=== PATIENT | male | born 1960 | race Caucasian/White ===

== ENCOUNTER 2019-08-15 00:58 | Observation (INO) | payer MEDICARE, OTHER ==
[2019-08-15 01:07] VITALS: RESP 18
--- NOTE | 2019-08-15 01:49 | ED ---
Chest Pain [facility] - General Chief Complaint: Chest Pain Stated Complaint: Chest Pain Time Seen by Provider: 08/15/19 01:09 Source: EMS Mode of arrival: EMS Limitations: no limitations - History of Present Illness MD Complaint: chest pain -: hour(s) Onset: during rest Pain Location: substernal Pain Radiation: jaw/teeth Severity: moderate Quality: aching Consistency: now resolved Improves With: nitroglycerin Worsens With: nothing Treatments Prior to Arrival: aspirin, nitroglycerin - Related Data Home Medications Medication Instructions Recorded Confirmed Clopidogrel [Plavix] 75 mg PO DAILY 02/14/15 08/15/19 Aspirin EC [Ecotrin Low Dose] 81 mg PO DAILY 07/25/16 08/15/19 Nitroglycerin Sl Tabs [Nitrostat] 0.4 mg SUBLINGUAL Q5M PRN 07/25/16 08/15/19 Omeprazole 20 mg PO HS 07/25/16 08/15/19 clonazePAM [KlonoPIN] 1 mg PO BID 07/25/16 08/15/19 Atorvastatin [Lipitor] 80 mg PO HS 08/15/19 08/15/19 Diazepam [Valium] 1 mg PO BID 08/15/19 08/15/19 Famotidine 40 mg PO DAILY 08/15/19 08/15/19 Gabapentin [Neurontin] 300 mg PO BID 08/15/19 08/15/19 Isosorbide Mononitrate ER [Imdur] 30 mg PO DAILY 08/15/19 08/15/19 Loratadine 10 mg PO DAILY 08/15/19 08/15/19 Metoprolol Tartrate [Lopressor] 25 mg PO HS 08/15/19 08/15/19 Metoprolol Tartrate [Lopressor] 50 mg PO DAILY 08/15/19 08/15/19 Ranolazine [Ranolazine ER] 500 mg PO BID 08/15/19 08/15/19 Tamsulosin HCl [Flomax] 0.4 mg PO HS 08/15/19 08/15/19 clonazePAM [KlonoPIN] 2 mg PO HS 08/15/19 08/15/19 Previous Rx's Medication Instructions Recorded Isosorbide Mononitrate ER [Imdur] 60 mg PO DAILY #30 tab.er.24h 07/26/16 Lisinopril [Zestril] 10 mg PO HS #30 tab 07/26/16 Allergies Allergy/AdvReac Type Severity Reaction Status Date / Time No Known Allergies Allergy Verified 08/15/19 08:36 Review of Systems ROS Statement: Those systems with pertinent positive or pertinent negative responses have been documented in the HPI. ROS Other: All systems not noted in ROS Statement are negative. Constitutional: Denies: fever, chills Respiratory: Denies: cough, dyspnea Cardiovascular: Reports: chest pain. Denies: palpitations, orthopnea, edema, syncope Gastrointestinal: Denies: abdominal pain, nausea, vomiting, melena, hematochezia Musculoskeletal: Denies: back pain Skin: Denies: rash Neurological: Denies: headache, weakness EKG Findings - EKG Results: EKG: interpreted by [facility], sinus rhythm (Rate 81 bpm) - Blocks, [place], Hypertrophy, ST Abn: AV and intraventricular conduction: right bundle branch block (fixed/intermittent, complete/incomplete) QRS axis and voltage: left axis deviation (-30 to -90) - [place], Pacemaker, Normal: Myocardial infarction: inferior [place] (old age indeterminate) Past Medical History Past Medical History: Coronary Artery Disease (CAD), GERD/Reflux, Hyperlipidemia, Hypertension, Myocardial Infarction ([place]), Osteoarthritis (OA) Additional Past Medical History / Comment(s): Pt states he has had "6" heart attacks including today's. He states, "the doctors are saying I didn't have one today but I know I did." Last documented [place] was an inferior [place] in 2000. Other HX: anal fistula, bilateral tinnitis, generalized OA, sleep disorder, "frightmares", dry skin bilateral ears. Last Myocardial Infarction Date:: 2000 per past record History of Any Multi-Drug Resistant Organisms: None Reported Past Surgical History: Back Surgery, Heart Catheterization, Heart Catheterization With Stent Additional Past Surgical History / Comment(s): Recent low back surgery, angioplasties, 9 stents total per pt. Past Anesthesia/Blood Transfusion Reactions: No Reported Reaction Date of Last Stent Placement:: 2008 Smoking Status: Former smoker - Past Family History Father Family Medical History: Cancer Additional Family Medical History / Comment(s): Father of prostate cancer at the age of 75yrs. Mother Family Medical History: Cancer Additional Family Medical History / Comment(s): Mothr of leukemia at the age of 86yrs. General Exam Limitations: no limitations General appearance: alert, in no apparent distress Head exam: Present: atraumatic, normocephalic Eye exam: Present: normal appearance. Absent: scleral icterus, conjunctival injection Neck exam: Present: normal inspection Respiratory exam: Present: normal lung sounds bilaterally. Absent: respiratory distress, wheezes, rales, rhonchi, stridor Cardiovascular Exam: Present: regular rate, normal rhythm, normal heart sounds. Absent: systolic murmur, diastolic murmur, rubs, gallop GI/Abdominal exam: Present: soft. Absent: distended, tenderness, guarding, rebound, rigid Extremities exam: Present: normal inspection, normal capillary refill. Absent: pedal edema, calf tenderness Back exam: Present: normal inspection. Absent: CVA tenderness (R), CVA tenderness (L) Neurological exam: Present: alert Skin exam: Present: warm, dry, intact, normal color. Absent: rash Course Vital Signs 08/15/19 08/15/19 08/15/19 01:01 01:17 01:50 Temperature 97.4 F L Pulse Rate 86 82 Pulse Rate [ Pulse Oximetery ] Respiratory 18 18 18 Rate Blood Pressure 148/91 129/81 Blood Pressure [Right Arm] O2 Sat by Pulse 98 Oximetry 08/15/19 08/15/19 08/15/19 02:00 02:10 02:20 Temperature Pulse Rate 78 77 68 Pulse Rate [ Pulse Oximetery ] Respiratory 18 18 18 Rate Blood Pressure 129/81 128/87 135/84 Blood Pressure [Right Arm] O2 Sat by Pulse Oximetry 08/15/19 08/15/19 08/15/19 02:30 02:40 02:50 Temperature Pulse Rate 73 73 71 Pulse Rate [ Pulse Oximetery ] Respiratory 13 13 17 Rate Blood Pressure 135/84 130/86 130/86 Blood Pressure [Right Arm] O2 Sat by Pulse Oximetry 08/15/19 08/15/19 08/15/19 03:00 03:10 03:20 Temperature Pulse Rate 72 72 70 Pulse Rate [ Pulse Oximetery ] Respiratory 16 0 L 17 Rate Blood Pressure 130/86 138/90 138/90 Blood Pressure [Right Arm] O2 Sat by Pulse Oximetry 08/15/19 08/15/19 08/15/19 03:30 03:40 03:50 Temperature Pulse Rate 70 62 68 Pulse Rate [ Pulse Oximetery ] Respiratory 19 17 18 Rate Blood Pressure 138/90 116/86 116/86 Blood Pressure [Right Arm] O2 Sat by Pulse Oximetry 08/15/19 04:00 Temperature 98.3 F Pulse Rate Pulse Rate [ 74 Pulse Oximetery ] Respiratory 18 Rate Blood Pressure Blood Pressure 146/81 [Right Arm] O2 Sat by Pulse 97 Oximetry Disposition Clinical Impression: Chest pain Disposition: ADMITTED IP TO THIS HOSP Condition: Fair Is patient prescribed a controlled substance at d/c from ED?: No
[2019-08-15 01:54] LABS: Basophils % (A) 0 %; Eosinophils # (A) 0.2 k/uL (0-0.7); Eosinophils % (A) 2 %; HCT 49.1 % (39.0-53.0); HGB 17.1 gm/dL (13.0-17.5); Lymphocytes # (A) 1.9 k/uL (1.0-4.8); Lymphocytes % (A) 24 %; MCH 32.1 pg (25.0-35.0); MCHC 34.8 g/dL (31.0-37.0); MCV 92.3 fL (80.0-100.0); Mean Platelet Volume 6.8; Monocytes # (A) 0.5 k/uL (0-1.0); Monocytes % (A) 6 %; Neutrophils # (A) 5.2 k/uL (1.3-7.7); Neutrophils % (A) 65 %; Platelet Count 159 k/uL (150-450); RBC 5.32 m/uL (4.30-5.90); RDW 13.3 % (11.5-15.5); WBC 7.9 k/uL (3.8-10.6)
[2019-08-15 02:07] LABS: Albumin 4.5 g/dL (3.5-5.0); Calcium 9.8 mg/dL (8.4-10.2); Magnesium 2.1 mg/dL (1.6-2.3); Potassium 4.4 mmol/L (3.5-5.1); Total Bilirubin 0.8 mg/dL (0.2-1.3); Total Protein 7.8 g/dL (6.3-8.2)
[2019-08-15] MEDS ORDERED: MORPHINE SULFATE 4 MG/ML SYRINGE IV STA (02:13)
[2019-08-15] MEDS ORDERED: METOPROLOL TARTRATE 25 MG TAB PO STA (02:13)
--- NOTE | 2019-08-15 02:13 | XR ---
EXAMINATION TYPE: XR chest 1V portable DATE OF EXAM: 08/15/2019 COMPARISON: 07/25/2016 HISTORY: Chest pain TECHNIQUE: Single frontal view of the chest is obtained. FINDINGS: There is no heart failure nor confluent pneumonic infiltrate. Costophrenic angles are morgan r. There are chest leads. Heart size is normal. Bony thorax appears intact. IMPRESSION: No active cardiopulmonary disease. Normal heart. No change.
[2019-08-15 02:14] LABS: D-Dimer 0.36 mg/L FEU (<0.60); INR 0.9 (<1.2); Partial Thromboplastin Time 24.5 sec (22.0-30.0); Prothrombin Time 9.9 sec (9.0-12.0)
[2019-08-15] MEDS ORDERED: NITROGLYCERIN SL TABS 0.4 MG TAB SUBLINGUAL PRN ×3 (03:08→10:54)
[2019-08-15] MEDS: NITROGLYCERIN OINT 1 INCH/GM PACKET TOPICAL SCH ×4 (06:10→22:52)
[2019-08-15] MEDS: ATENOLOL 25 MG TAB PO SCH ×3 (08:53→20:43)
[2019-08-15] MEDS: RANOLAZINE 500 MG TAB.ER.12H PO SCH ×2 (08:53→20:43)
[2019-08-15] MEDS ORDERED: CLOPIDOGREL 75 MG TAB PO SCH (09:00)
[2019-08-15] MEDS ORDERED: NON FORMULARY DRUG (Ubidecarenone [Co Q-10] 100 MG) PO SCH (09:00)
[2019-08-15] MEDS ORDERED: ASPIRIN 81 MG PO SCH (09:00)
[2019-08-15] MEDS ORDERED: ISOSORBIDE MONONITRATE ER 60 MG TAB.ER.24H PO SCH (09:00)
[2019-08-15] MEDS ORDERED: GABAPENTIN 300 MG CAP PO SCH (09:00)
[2019-08-15] MEDS ORDERED: DIAZEPAM 2 MG TAB PO PRN (09:09)
[2019-08-15] MEDS ORDERED: SODIUM CHLORIDE 0.9% 1,000 ML IV SCH ×2 (09:15→13:45)
[2019-08-15] MEDS ORDERED: ISOSORBIDE MONONITRATE ER 30 MG TAB.ER.24H PO ONE (09:15)
--- NOTE | 2019-08-15 10:00 | P.HPIM ---
History of Present Illness 59-year-old male with known history of carotid artery disease multiple stents but for cardiac catheterization including a recent one about a week ago came in with compensative chest pain nonexertional substernal moderate amount of chest pain radiating to teeth and jaw aching in quality lasted for few minutes and resolved with nitroglycerin. patient chest pain is nonpleuritic not associated with food. EKG shows someQ waves and right bundle branch block. Patient is on Ranexa and the patient is supposed to be started on repatha for hyperlipidemia.in pleasant resolved within the process of obtaining medical records from [facility] where he had a recent cardiac catheterization depending on which cardiology and micturition regarding repeat cardiac catheterization.patient chest pain is similar to the pain he had when they have to put a stent Review of Systems REVIEW OF SYSTEMS: CONSTITUTIONAL: No fever, no malaise, no fatigue. HEENT: No recent visual problems or hearing problems. Denied any sore throat. CARDIOVASCULAR: No orthopnea, PND, no palpitations, no syncope. PULMONARY: No shortness of breath, no cough, no hemoptysis. GASTROINTESTINAL: No diarrhea, no nausea, no vomiting, no abdominal pain. NEUROLOGICAL: No headaches, no weakness, no numbness. HEMATOLOGICAL: Denies any bleeding or petechiae. GENITOURINARY: Denies any burning micturition, frequency, or urgency. MUSCULOSKELETAL/RHEUMATOLOGICAL: Denies any joint pain, swelling, or any muscle pain. ENDOCRINE: Denies any polyuria or polydipsia. The rest of the 14-point review of systems is negative. Past Medical History Past Medical History: Coronary Artery Disease (CAD), GERD/Reflux, Hyperlipidemia, Hypertension, Myocardial Infarction ([place]), Osteoarthritis (OA) Additional Past Medical History / Comment(s): Pt states he has had "6" heart attacks including today's. He states, "the doctors are saying I didn't have one today but I know I did." Last documented [place] was an inferior [place] in 2000. Other HX: anal fistula, bilateral tinnitis, generalized OA, sleep disorder, "frightmares", dry skin bilateral ears. Last Myocardial Infarction Date:: 2000 per past record History of Any Multi-Drug Resistant Organisms: None Reported Past Surgical History: Back Surgery, Heart Catheterization, Heart Catheterization With Stent Additional Past Surgical History / Comment(s): Recent low back surgery, angioplasties, 14 stents total per pt. Past Anesthesia/Blood Transfusion Reactions: No Reported Reaction Date of Last Stent Placement:: 2008 Past Psychological History: Anxiety, Depression, Panic Disorder Additional Psychological History / Comment(s): Pt lives alone. Due to recent back surgery he is using a walker at times to ambulate. He drives. He states his primary care physician has discontinued some of his psych meds and pain medication. He states his depression is not severe at this time and he is not suicidal. Smoking Status: Former smoker Past Alcohol Use History: None Reported Additional Past Alcohol Use History / Comment(s): Pt states he quit smoking 07/18/89. He started smoking in 1980. Past Drug Use History: Marijuana Additional Drug Use History / Comment(s): Pt denies any drug abuse past or present. He states he will smoke marijuana on occasion but not often. - Past Family History Father Family Medical History: Cancer Additional Family Medical History / Comment(s): Father of prostate cancer at the age of 75yrs. Mother Family Medical History: Cancer Additional Family Medical History / Comment(s): Mothr of leukemia at the age of 86yrs. Medications and Allergies Home Medications Medication Instructions Recorded Confirmed Type Clopidogrel [Plavix] 75 mg PO DAILY 02/14/15 08/15/19 History Aspirin EC [Ecotrin Low Dose] 81 mg PO DAILY 07/25/16 08/15/19 History Nitroglycerin Sl Tabs [Nitrostat] 0.4 mg SUBLINGUAL Q5M PRN 07/25/16 08/15/19 History Omeprazole 20 mg PO HS 07/25/16 08/15/19 History clonazePAM [KlonoPIN] 1 mg PO BID 07/25/16 08/15/19 History Isosorbide Mononitrate ER [Imdur] 60 mg PO DAILY #30 tab.er.24h 07/26/16 08/15/19 Rx Lisinopril [Zestril] 10 mg PO HS #30 tab 07/26/16 08/15/19 Rx Atorvastatin [Lipitor] 80 mg PO HS 08/15/19 08/15/19 History Diazepam [Valium] 1 mg PO BID 08/15/19 08/15/19 History Famotidine 40 mg PO DAILY 08/15/19 08/15/19 History Gabapentin [Neurontin] 300 mg PO BID 08/15/19 08/15/19 History Isosorbide Mononitrate ER [Imdur] 30 mg PO DAILY 08/15/19 08/15/19 History Loratadine 10 mg PO DAILY 08/15/19 08/15/19 History Metoprolol Tartrate [Lopressor] 25 mg PO HS 08/15/19 08/15/19 History Metoprolol Tartrate [Lopressor] 50 mg PO DAILY 08/15/19 08/15/19 History Ranolazine [Ranolazine ER] 500 mg PO BID 08/15/19 08/15/19 History Tamsulosin HCl [Flomax] 0.4 mg PO HS 08/15/19 08/15/19 History clonazePAM [KlonoPIN] 2 mg PO HS 08/15/19 08/15/19 History Allergies Allergy/AdvReac Type Severity Reaction Status Date / Time No Known Allergies Allergy Verified 08/15/19 08:36 Physical Exam Vitals: Vital Signs Temp Pulse Pulse Resp BP BP Pulse Ox 08/15/19 08:00 98.2 F 63 18 142/75 93 L 08/15/19 04:00 98.3 F 74 18 146/81 97 08/15/19 03:50 68 18 116/86 08/15/19 03:40 62 17 116/86 08/15/19 03:30 70 19 138/90 08/15/19 03:20 70 17 138/90 08/15/19 03:10 72 0 L 138/90 08/15/19 03:00 72 16 130/86 08/15/19 02:50 71 17 130/86 08/15/19 02:40 73 13 130/86 08/15/19 02:30 73 13 135/84 08/15/19 02:20 68 18 135/84 08/15/19 02:10 77 18 128/87 08/15/19 02:00 78 18 129/81 08/15/19 01:50 82 18 129/81 08/15/19 01:17 18 08/15/19 01:01 97.4 F L 86 18 148/91 98 Intake and Output 08/14/19 08/15/19 08/15/19 22:59 06:59 14:59 Other: Voiding Method Toilet Urinal Weight 98.5 kg PHYSICAL EXAMINATION: GENERAL: The patient is alert and oriented x3, not in any acute distress. Well developed, well nourished. HEENT: Pupils are round and equally reacting to light. EOMI. No scleral icterus. No conjunctival pallor. Normocephalic, atraumatic. No pharyngeal erythema. No thyromegaly. CARDIOVASCULAR: S1 and S2 present. No murmurs, rubs, or gallops. PULMONARY: Chest is clear to auscultation, no wheezing or crackles. ABDOMEN: Soft, nontender, nondistended, normoactive bowel sounds. No palpable organomegaly. MUSCULOSKELETAL: No joint swelling or deformity. EXTREMITIES: No cyanosis, clubbing, patient does have 1+ pitting pedal edema NEUROLOGICAL: Gross neurological examination did not reveal any focal deficits. SKIN: No rashes. Results CBC & Chem 7: 08/15/19 01:08 08/15/19 01:08 Labs: Abnormal Lab Results - Last 24 Hours (Table) 08/15/19 Range/Units 01:08 Creatinine 1.30 H (0.66-1.25) mg/dL Glucose 143 H (74-99) mg/dL Thrombosis Risk Factor Assmnt - Choose All That Apply Each Factor Represents 1 point: Age 41-60 years Thrombosis Risk Factor Assessment Total Risk Factor Score: 1 Thrombosis Risk Factor Assessment Level: Low Risk Assessment and Plan Plan: -chest pain possibly of unstable angina, high risk cardiology evaluate the patient further management as per the plan is to continue with the statin dual antiplatelet therapy, heparin and beta ryan.along with nitro -chronic kidney disease probably stage II patient may have some acute renal failure as well for now will not start him any IV fluids or Lasix patient does have pedal edema do not know his ejection fraction patient is not in heart failure exacerbation. Unsure whether he has heart failure but patient denies that history patient may have some competent of acute renal failure -HyperlipidemiaHypertension -Peripheral neuropathy -coronary artery disease with multiple stents in the past
[2019-08-15] MEDS: DIAZEPAM 2 MG TAB PO PRN ×2 (10:16→20:49)
--- NOTE | 2019-08-15 10:39 | CONS ---
CONSULTATION CHIEF COMPLAINT: Chest pain. This is a 59-year-old gentleman with history of multivessel coronary artery disease status post multiple prior angioplasties. Patient states that he has had almost 12 angioplasties including some in [place], some at [place], some at [place] and some here at [facility]. He apparently had a stent within the last 1 week by [employer] at [facility]. Comes in complaining of chest pain. He describes it as intermittent episodes of precordial chest pressure, mild to moderate intensity, became worse yesterday, called the EMS that brought him to our emergency room where he got admitted. At the time of my evaluation, he appears comfortable at rest and is free of symptoms. EKG shows sinus rhythm with right bundle branch block and evidence of prior inferior wall myocardial infarction. He has had 2 sets of troponins that are both negative. Given the recent intervention, I advised the patient to undergo cardiac catheterization to rule out subacute thrombosis. The patient has been explained of risks, benefits and alternatives. This will be done sometime today. PAST MEDICAL HISTORY: Significant for coronary artery disease, status post multivessel angioplasty, hypertension, dyslipidemia. CURRENT MEDICATIONS: Include Valium 1 mg b.i.d., famotidine 40 mg t.i.d., Ranexa 500 b.i.d., Lopressor 50 mg daily, Neurontin 300 b.i.d., Flomax, Lipitor Lopressor 25 mg daily, Klonopin, Zestril, aspirin, omeprazole, Imdur, or Plavix. ALLERGIES: No known drug allergies. FAMILY HISTORY: Significant for premature coronary artery disease in his father who underwent bypass surgery multiple times. SOCIAL HISTORY: Negative for current smoking, EtOH abuse, or drug abuse. REVIEW OF SYSTEMS: HEENT is unremarkable. CARDIAC: As described above. RESPIRATORY: As described above. GI: Negative. : Negative. ALLERGY/IMMUNOLOGY: Negative. SKIN: Negative. MUSCULOSKELETAL: Negative. ENDOCRINE: Negative. DERM: Negative. CONSTITUTIONAL: Negative. ONCOLOGICAL: Negative. Rest of the system review is not relevant. PHYSICAL EXAMINATION: On exam, patient is comfortable at rest. Vital signs are stable. There is no jugular venous distention. Carotid upstroke is normal. There is no bruit. Chest exam reveals good air entry bilaterally. Heart exam reveals first and second heart sounds. No gallop. No murmur. No rub. Abdomen is soft, nontender. Exam of extremities did not reveal any edema. Peripheral pulses are felt. PATIENT EXPERIENCE COORDINATOR exam did not reveal focal neurological deficits. LABS: Show that the hemoglobin is 17.1, platelet count is 159. Potassium is 4.4, creatinine is 1.3. ASSESSMENT: Unstable angina in a patient with known coronary artery disease, status post multiple prior angioplasties including recent intervention at [facility]. PLAN: We will to get hold of the records from [facility]. I reviewed his angiograms from 2016 that were done here. The patient will undergo cardiac catheterization later in the day. MMODL / IJN: [id number] /
[2019-08-15] MEDS ORDERED: ASPIRIN 325 MG TAB PO STA (10:54)
[2019-08-15] MEDS ORDERED: ALPRAZolam 0.5 MG TAB PO PRN (10:54)
[2019-08-15] MEDS ORDERED: ALPRAZolam 0.25 MG TAB PO PRN (10:54)
[2019-08-15] MEDS ORDERED: ATORVASTATIN 80 MG TAB PO STA (10:54)
[2019-08-15] MEDS ORDERED: SODIUM CHLORIDE 0.9% 1,000 ML in EMPTY BAG 1 BAG IV ONE (10:54)
[2019-08-15] MEDS ORDERED: IV FLUID CONTINUATION 850 ML IV ONE (13:05)
[2019-08-15] MEDS ORDERED: LIDOCAINE 1% INJ 10MG/ML (20 ML MDV) SQ ONE (13:15)
[2019-08-15] MEDS ORDERED: MIDAZOLAM 2 MG/2 ML VIAL IVP ONE ×2 (13:15→13:21)
[2019-08-15] MEDS: VERAPAMIL SYRINGE (5 MG/10 ML) INTRAARTER ONE ×2 (13:21→13:34)
[2019-08-15] MEDS ORDERED: HEPARIN SODIUM 1,000 UN/ML (10ML VL) IV ONE (13:22)
[2019-08-15] MEDS ORDERED: IOPAMIDOL-370 125ML BTL INJ ONE (13:35)
[2019-08-15] MEDS ORDERED: RX INFO: IV CONTRAST WAS GIVEN 1 EACH MISC MISCELLANE PRN (13:40)
--- NOTE | 2019-08-15 14:06 | CC ---
CARDIAC CATHETERIZATION REPORT DATE OF SERVICE: August 15, 2019 PERFORMING PHYSICIAN: Scott Paredes MD. PROCEDURE PERFORMED: 1. Selective right and left coronary angiogram. 2. Left heart catheterization. INDICATION: This is a pleasant 59-year-old gentleman who does see a fundraising coordinator out of the town with history of coronary artery disease and prior stenting of the RCA as well as LCX, who presented to the hospital with chest discomfort and ruled in for acute non-ST- elevation myocardial infarction. He was seen by Dr. Daly who recommended proceeding with coronary angiogram from a radial approach. COMPLICATION: None. LEVEL OF SEDATION: Moderate with sedation length of 22 minutes. PROCEDURE DESCRIPTION: After obtaining an informed consent, the patient was brought to the cardiac label maker. The right radial artery was cannulated using micropuncture technique under ultrasound guidance, the micropuncture wire passed easily then I placed a 6-Irish sheath in the right radial artery. I gave the patient 2 mg of verapamil IA and 10,000 units of heparin IV. Selective right and left coronary angiogram performed using JR4 and JL3.5 catheters. Left heart catheterization was performed using a pigtail catheter. The procedure was completed without any complication. SELECTIVE CORONARY ANGIOGRAM: 1. The right coronary artery is a large caliber vessel. It is a dominant vessel and is chronically occluded in the midportion which seems to be in-stent occlusion. 2. The left main is a large caliber vessel. It does have mild disease only. It bifurcates into left circumflex, ramus intermedius, and left anterior descending artery. 3. The left circumflex is a large caliber vessel. The left circumflex is stented in the proximal and midportion with mild to moderate diffuse in-stent restenosis. 4. The ramus intermedius is also stented with mild to moderate in-stent restenosis. 5. The LAD: The proximal LAD is angiographically normal. It gives rise into a large diagonal branch, which seems to be normal. The mid LAD and distal LAD appeared to be angiographically normal. HEMODYNAMICS: The LVEDP was 22 mmHg without significant gradient across the aortic valve. CONCLUSION: 1. Chronic total occlusion of the right coronary artery which fills by collaterals from the left coronary system. The right coronary artery occlusion is in-stent. 2. Mild to moderate in-stent restenosis involving the left circumflex coronary artery as well as ramus intermedius coronary artery. 3. Normal left anterior descending artery/diagonal system. 4. Elevated left ventricular end-diastolic pressure. POSTPROCEDURE MANAGEMENT: 1. Maximize medical treatment. 2. Follow up with the patient's fundraising coordinator. DEBI / RUDDY: [id number] /
[2019-08-15] MEDS: GABAPENTIN 300 MG CAP PO SCH (20:43)
[2019-08-15] MEDS ORDERED: ATORVASTATIN 40 MG TAB PO SCH (21:00)
[2019-08-15] MEDS ORDERED: LISINOPRIL 10 MG TAB PO SCH (21:00)
[2019-08-15] MEDS ORDERED: PANTOPRAZOLE 40 MG TABLET PO SCH (21:00)
[2019-08-15] MEDS ORDERED: clonazePAM 1 MG TAB PO SCH (21:00)
[2019-08-16] MEDS: NITROGLYCERIN OINT 1 INCH/GM PACKET TOPICAL SCH ×3 (06:22→11:16)
[2019-08-16 07:00] LABS: Calcium 9.4 mg/dL (8.4-10.2); Potassium 4.7 mmol/L (3.5-5.1)
[2019-08-16 08:04] VITALS: BP 118/71; PULSE 76
[2019-08-16] MEDS: ATENOLOL 25 MG TAB PO SCH ×2 (08:21→11:04)
[2019-08-16] MEDS: RANOLAZINE 500 MG TAB.ER.12H PO SCH (08:21)
[2019-08-16] MEDS: GABAPENTIN 300 MG CAP PO SCH (08:21)
[2019-08-16] MEDS ORDERED: ISOSORBIDE MONONITRATE ER 30 MG TAB.ER.24H PO SCH (09:00)
[2019-08-16] MEDS ORDERED: ASPIRIN 325 MG TAB PO SCH (09:00)
[2019-08-16 10:10] VITALS: TEMP 99
--- NOTE | 2019-08-16 10:12 | PN ---
PROGRESS NOTE FOLLOW-UP NOTE: This is a 59-year-old gentleman with history of coronary artery disease, status post multiple prior angioplasties, who presented to hospital with unstable angina. He underwent a recent angioplasty, and cardiac catheterization revealed normal LAD and mild to moderate disease involving circumflex and ramus intermedius with patent stents and chronic occlusion of the right coronary artery, which is very similar to what he had at the end of the previous catheterization. So patient was advised medical therapy and followup with his own pumper gauger. This morning patient is doing well. Has not had any further episodes of chest pain. On exam, comfortable at rest. Vital signs are stable. There is no jugular venous distention. Chest exam reveals good air entry bilaterally. Heart exam reveals first and second heart sounds. No gallop. No murmur. Examination of extremities did not reveal any edema. Peripheral pulses are felt. Labs show potassium of 4.7. Creatinine is 1.3. Troponins are negative. LDL is 73. ASSESSMENT: Coronary artery disease, status post multi-vessel angioplasty. PLAN: Patient is doing well. He will continue with current medications, including the dual antiplatelet therapy. Follow up with his own pumper gauger on discharge. MMODL / IJN: [id number] /
--- NOTE | 2019-09-07 15:37 | P.DS ---
Providers Date of admission: 08/15/19 03:08 Expected date of discharge: 08/16/19 Attending physician: Brock Yang Consults: 08/15/19 03:08 Consult Physician Routine Consulting Provider: Ja Daly Consult Reason/Comments: Chest pain Do you want consulting provider notified?: Yes Primary care physician: Physician Nonsta Hospital Course: Patient left AMA Patient Condition at Discharge: Fair Plan - Discharge Summary Discharge Rx Participant: No New Discharge Prescriptions: No Action Clopidogrel [Plavix] 75 mg PO DAILY Nitroglycerin Sl Tabs [Nitrostat] 0.4 mg SUBLINGUAL Q5M PRN PRN Reason: Angina Aspirin EC [Ecotrin Low Dose] 81 mg PO DAILY clonazePAM [KlonoPIN] 1 mg PO BID Omeprazole 20 mg PO HS Isosorbide Mononitrate ER [Imdur] 60 mg PO DAILY #30 tab.er.24h Lisinopril [Zestril] 10 mg PO HS #30 tab clonazePAM [KlonoPIN] 2 mg PO HS Isosorbide Mononitrate ER [Imdur] 30 mg PO DAILY Loratadine 10 mg PO DAILY Atorvastatin [Lipitor] 80 mg PO HS Metoprolol Tartrate [Lopressor] 25 mg PO HS Gabapentin [Neurontin] 300 mg PO BID Metoprolol Tartrate [Lopressor] 50 mg PO DAILY Tamsulosin HCl [Flomax] 0.4 mg PO HS Ranolazine [Ranolazine ER] 500 mg PO BID Famotidine 40 mg PO DAILY Diazepam [Valium] 1 mg PO BID Discharge Medication List Clopidogrel [Plavix] 75 mg PO DAILY 02/14/15 [History] Aspirin EC [Ecotrin Low Dose] 81 mg PO DAILY 07/25/16 [History] Nitroglycerin Sl Tabs [Nitrostat] 0.4 mg SUBLINGUAL Q5M PRN 07/25/16 [History] Omeprazole 20 mg PO HS 07/25/16 [History] clonazePAM [KlonoPIN] 1 mg PO BID 07/25/16 [History] Isosorbide Mononitrate ER [Imdur] 60 mg PO DAILY #30 tab.er.24h 07/26/16 [Rx] Lisinopril [Zestril] 10 mg PO HS #30 tab 07/26/16 [Rx] Atorvastatin [Lipitor] 80 mg PO HS 08/15/19 [History] Diazepam [Valium] 1 mg PO BID 08/15/19 [History] Famotidine 40 mg PO DAILY 08/15/19 [History] Gabapentin [Neurontin] 300 mg PO BID 08/15/19 [History] Isosorbide Mononitrate ER [Imdur] 30 mg PO DAILY 08/15/19 [History] Loratadine 10 mg PO DAILY 08/15/19 [History] Metoprolol Tartrate [Lopressor] 25 mg PO HS 08/15/19 [History] Metoprolol Tartrate [Lopressor] 50 mg PO DAILY 08/15/19 [History] Ranolazine [Ranolazine ER] 500 mg PO BID 08/15/19 [History] Tamsulosin HCl [Flomax] 0.4 mg PO HS 08/15/19 [History] clonazePAM [KlonoPIN] 2 mg PO HS 08/15/19 [History] Follow up Appointment(s)/Referral(s): Chito Hyde MD [REFERRING] - 1-2 days (Offices are closed please call to make a folllow up appointment when offices are open Sunday.) Patient Instructions/Handouts: Acute Coronary Syndrome (DC), After Radial Heart Catheterization (GEN) Discharge Disposition: Left Against Medical Advice
== END 2019-08-16 11:27 | disposition left against medical advice (07) ==
LOC: EC 00:58 → 3SCARD 03:08
PROVIDERS: ADMIT Hospitalist; ATTEND Hospitalist
DX: R07.89 Other chest pain (principal); Z53.29 Procedure and treatment not carried out because of patient's decision for other reasons; I12.9 Hypertensive chronic kidney disease with stage 1 through stage 4 chronic kidney disease, or unspecified chronic kidney disease; N18.9 Chronic kidney disease, unspecified; E78.5 Hyperlipidemia, unspecified; G62.9 Polyneuropathy, unspecified; I25.119 Atherosclerotic heart disease of native coronary artery with unspecified angina pectoris; I25.82 Chronic total occlusion of coronary artery; T82.855A Stenosis of coronary artery stent, initial encounter; R93.1 Abnormal findings on diagnostic imaging of heart and coronary circulation; I45.10 Unspecified right bundle-branch block; I25.2 Old myocardial infarction; K21.9 Gastro-esophageal reflux disease without esophagitis; G47.9 Sleep disorder, unspecified; F51.5 Nightmare disorder; L98.8 Other specified disorders of the skin and subcutaneous tissue; M15.9 Polyosteoarthritis, unspecified; F41.9 Anxiety disorder, unspecified; F32.9 Major depressive disorder, single episode, unspecified; F41.0 Panic disorder [episodic paroxysmal anxiety]; Z95.5 Presence of coronary angioplasty implant and graft; Z79.02 Long term (current) use of antithrombotics/antiplatelets; Z79.82 Long term (current) use of aspirin; Z79.899 Other long term (current) drug therapy; Z87.19 Personal history of other diseases of the digestive system; Z86.69 Personal history of other diseases of the nervous system and sense organs; Z98.890 Other specified postprocedural states; Z87.891 Personal history of nicotine dependence; Z80.42 Family history of malignant neoplasm of prostate; Z80.6 Family history of leukemia; Z82.49 Family history of ischemic heart disease and other diseases of the circulatory system
CPT/HCPCS: 93005 ×2; 96374; 99285; 36415; 93458; 85379; 80061; 80053; 80048; 82150; 83690; 83735; 84484; 85025; 85610; 85730; 71045; G0378 ×2; C1769; C1894; J2250; J2270; J2001; J1644; Q9967

== ENCOUNTER 2019-11-24 | Observation (INO) | payer MEDICARE | END 2019-11-24 19:06 | disposition left against medical advice (07) | PROVIDERS: ADMIT Hospitalist | CPT/HCPCS: 96376; 96374; 99291; 36415; 93005; 93306; 80053; 83735; 84484; 85025; 85610; 85730; 71046; G0378; J1644 ×2 ==